=== PATIENT | female | born 1965 | race Caucasian/White ===

== ENCOUNTER 2024-09-25 05:40 | Day surgery (SDC) | payer MEDICARE, SELFPAY ==
--- NOTE | 2024-09-24 06:40 | EKG_ITS ---
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
[2024-09-24 08:49] VITALS: BMI 35.6
[2024-09-24 09:44] LABS: Basophils # (Auto) 0.1 Thou/mm3 (0.0-0.2); Basophils % (Auto) 1 % (0-2.5); Eosinophils # (Auto) 0.2 Thou/mm3 (0.0-0.5); Eosinophils % (Auto) 2 % (0-10); Hematocrit 44.8 % (36.0-46.0); Hemoglobin 15.4 g/dL (12.0-16.0); Immature Granulocytes % (Auto) 0 % (0-0); Immature Granulocytes Auto 0.03 Thou/mm3 (0.00-0.00); Lymphocytes # (Auto) 2.1 Thou/mm3 (1.0-4.8); Lymphocytes % (Auto) 23 % (10-50); Mean Corpuscular HGB Conc 34.4 g/dl (31.0-37.0); Mean Corpuscular Hemoglobin 31.7 pg (25.0-35.0); Mean Corpuscular Volume 92 fL (80-100); Monocytes # (Auto) 0.7 Thou/mm3 (0.0-0.8); Monocytes % (Auto) 8 % (0-12); Neutrophils # (Auto) 6.1 Thou/mm3 (1.8-7.7); Neutrophils % (Auto) 66 % (37-80); Nucleated Red Blood Cell % 0 /100 WBC (0); Platelet Count 232 Thou/mm3 (140-440); RDW Standard Deviation 43.6 fL (36.4-46.3); Red Blood Count 4.86 Miln/mm3 (4.00-5.20); White Blood Count 9.2 Thou/mm3 (3.6-11.0)
[2024-09-24 10:09] LABS: Alanine Aminotransferase 14 U/L (10-49); Albumin, Serum 4.7 gm/dL (3.5-5.0); Alkaline Phosphatase 85 U/L (46-116); Anion Gap 9 (7-16); Aspartate Amino Transferase 12 U/L (0-34); BUN/Creatinine Ratio 8 Ratio (12-20); Bilirubin,Total 0.3 mg/dL (0.3-1.2); Blood Urea Nitrogen 8 mg/dL (9-23); Calcium 9.2 mg/dL (8.3-10.6); Calcium (Corrected) 9.2 mg/dL (8.5-10.1); Chloride 106 mMol/L (98-107); Estimated Creatinine Clearance 65.8 mL/min (>60); Globulin 2.3 gm/dL (2.3-3.5); Glucose 225 mg/dL (74-106); Osmolality,Calculated 292 (275-295); Sodium 144 mMol/L (136-145); eGFR > 60 See Note
[2024-09-24 10:43] LABS: Hepatitis A Antibody IgM Non Reactive (Non React); Hepatitis B Core Antibody IgM Non Reactive (Non React); Hepatitis B Surface Antigen Non Reactive (Non React); Hepatitis C Antibody Non Reactive (Non React)
[2024-09-24 11:55] LABS: HIV (1&2) Antibody Rapid Non-Reactive
[2024-09-25] VITALS (8 sets, daily range): BP systolic 117–156; BP diastolic 63–82; PULSE 60–91; RESP 12–18; TEMP 36.3–37.1; O2SAT 96–98; BMI 35.2
--- NOTE | 2024-09-25 07:55 | PD.GYNHP ---
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 DAMICO is a 58 year old female para 4 admitted for polypectomy and hysteroscopy, diagnostic given the fact that she has 4 to 5 cm polyp from her cervix. Patient has been having repeated episodes of postmenopausal bleeding related to the same. Patient has medical history of hypertension, diabetes and is cleared by her primary care including a cardiology clearance. Patient denies any surgeries in the past. Patient denies any family history of cancer. Last Pap smear was in 2023 which resulted in abnormality of ASCUS. Meds Home Medications and Allergies Home Medications ?Medication ?Instructions ?Recorded ?Confirmed ?Type amlodipine 10 mg tablet 10 mg PO DAILY 09/24/24 09/25/24 History ascorbic acid (vitamin C) 1,000 mg 1,000 mg PO QDAY 09/24/24 09/25/24 History tablet,extended release (C Complex) atenolol 100 mg tablet 100 mg PO DAILY 09/24/24 09/25/24 History cholecalciferol (vitamin D3) 25 25 mcg PO QDAY 09/24/24 09/25/24 History mcg (1,000 unit) capsule (Vitamin D3) clonazepam 1 mg tablet 1 mg PO DAILY PRN anxiety 09/24/24 09/25/24 History hydralazine 50 mg tablet 50 mg PO BID 09/24/24 09/25/24 History lisinopril 40 mg tablet 40 mg PO BID 09/24/24 09/25/24 History metformin 750 mg tablet,extended 1,500 mg PO DAILY 09/24/24 09/25/24 History release 24 hr pantoprazole 40 mg tablet,delayed 40 mg PO QAM 09/24/24 09/25/24 History release (Protonix) albuterol sulfate 90 mcg/actuation 2 puff inhalation Q4H PRN 09/25/24 09/25/24 History aerosol inhaler shortness of breath or wheezing fluticasone propionate 115 2 puff inhalation Q12H 09/25/24 09/25/24 History mcg-salmeterol 21 mcg/actuation HFA inhaler (Advair HFA) Allergies Allergy/AdvReac Type Severity Reaction Status Date / Time No Known Allergies Allergy Verified 09/25/24 06:17 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 Vital Signs Temp Pulse Resp BP Pulse Ox 97.3 F 60 18 129/77 96 09/25/24 06:20 09/25/24 06:20 09/25/24 06:20 09/25/24 06:20 09/25/24 06:20 Constitutional Constitutional: no acute distress Routine HEENT Exam Head: Present normocephalic and atraumatic Eye: Present EOMI and PERRL ENT: Present mucous membranes moist Routine Neck Exam Neck: Present supple and trachea midline Routine Respiratory Exam Respiratory: Present chest non-tender, lungs clear, normal breath sounds and no resp distress Routine Cardiovascular Exam Cardiovascular: Present RRR Routine Abdominal Exam Abdominal: Present soft and normoactive bowel sounds Routine Extremities Exam Extremities: Present full ROM Routine Skin Exam Skin: Present intact and dry Routine Neurological Exam Neurological: Present alert, oriented X3 and CN II-XII intact Routine Psychiatric Exam Psychiatric: Present normal affect and normal thought process INSTRUMENT OPERATOR - Results Labs 09/24/24 09:08 09/24/24 09:08 Labs: Short CBC 09/24/24 Range/Units 09:08 WBC 9.2 (3.6-11.0) Thou/mm3 Hgb 15.4 (12.0-16.0) g/dL Hct 44.8 (36.0-46.0) % Plt Count 232 (140-440) Thou/mm3 BMP 09/24/24 09:08 Sodium 144 Potassium 5.0 Chloride 106 Carbon Dioxide 29.0 BUN 8 L Creatinine 1.0 Glucose 225 H Calcium 9.2 Liver Function 09/24/24 Range/Units 09:08 Total Bilirubin 0.3 (0.3-1.2) mg/dL AST 12 (0-34) U/L ALT 14 (10-49) U/L Alkaline Phosphatase 85 (46-116) U/L Albumin 4.7 (3.5-5.0) gm/dL Impressions Impression: 58-year-old para 4 admitted for diagnostic hysteroscopy polypectomy Postmenopausal bleeding History of cervical Pap smear abnormality of ASCUS in 2023, HPV negative Cardiology clearance obtained Assessment and Plan Additional Assessment & Plan Additional Plan: Diagnostic hysteroscopy, polypectomy Antibiotic prophylaxis not required DVT prophylaxis Quality Measures Quality Measures VTE prophylaxis
--- NOTE | 2024-09-25 08:56 | SUR.PHASEI ---
0862 Patient arrived recovery sitting up in [facility], drowsy and talking with staff, breathing unlabored, vital signs stable, denies pain and nausea, dressing intact to vaginal area; peripad, no bleeding noted, report received from Tom HARDING/Speedy STERN and Jordyn REEDER/Lio REEDER
--- NOTE | 2024-09-25 09:57 | SUR.PHASEII ---
0957 Patient meets discharge criteria from recovery, awake and alert, breathing unlabored, vital signs stable, denies pain and nausea, dressing intact; no bleeding noted, assisted with dressing into her clothing by her , discharge instructions given to patient and patient , signed discharge instructions. Patient given all her belongings prior to discharge, transported via wheelchair and left in a private vehicle.
--- NOTE | 2024-09-25 12:05 | ESOP_ITS ---
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 Indication: Postmenopausal bleeding Cervical polyp Pre-Op diagnosis: Same Post-Op diagnosis: Same Anesthesia type: General Procedure description: The patient was seen prior to surgery. The potential benefits and risks of the procedure, the likelihood of success, and the problems related to recuperation have been discussed with patient who agrees to proceed. The possible results of nontreatment and significant alternatives to the proposed procedure have also been explained, along with the risks and benefits of the alternatives. Risks and benefits of chosen anesthetic/sedation and possible use of blood/blood products (if appropriate) were discussed.The patient was identified as Nahed Sanchez and the procedure verified. A time out was held reviewing the patient identifiers, procedure planned and allergies. At this point the procedure was begun. The patient was positioned and prepped in routine fashion in the dorsal lithotomy position using yellowfin stirups. On examination under anesthesia,the uterus was retroverted to a normal size. Bladder was drained by catheter. A weighted [facility] A brennen was used to expose the anterior lip of the cervix which was then grasped by a single tooth tenaculum.there was a large polyp of 5 to 6 cm X protruding from the external os on palpation the base was in the cervical canal using an Endoloop suture of 0 Vicryl the stitch was tightened around the base and using a curved Morrell the polyp was excised and sent for pathology the cervix was then very easily dilated to a size 6 Hegar dilator. The hysteroscope was then placed under direct visualization. Warm lactated Ringer's was used as a distention medium. The patient's uterus was found to have normal endometrial cavity, fractional D&C done and endometrial curettings sent for pathology. Pictures were taken. . The uterus appeared clear of any remaining excess tissue and the myosure camera and device were withdrawn from the cavity. There was minimal bleeding noted and tenaculum was removed. Hemostasis was acheived with a ringed forcep on anterior cervix. Estimated blood loss (ml): 5 Surgical staff Operation Date: 09/25/24 07:30 <No data on this case meets the specified criteria> Diagnosis Problem List Completed Was Problem List Reviewed/Reconciled?: Yes
== END 2024-09-25 09:57 | disposition home or self-care (01) ==
PROVIDERS: Anesthesiology; PCP Family Medicine; Referring Provider Student in an Organized Health Care Education/Training Program; Visit Provider Student in an Organized Health Care Education/Training Program
PROC: 0UJD8ZZ Inspection of Uterus and Cervix, Via Natural or Artificial Opening Endoscopic (ICD-10-PCS; CPT 58555; principal; 2024-09-25 07:30)
DX: N84.1 Polyp of cervix uteri (principal); Z79.51 Long term (current) use of inhaled steroids; I10 Essential (primary) hypertension; E11.9 Type 2 diabetes mellitus without complications; Z01.810 Encounter for preprocedural cardiovascular examination
CPT/HCPCS: 58558; 36415; 80053; 80074; 85025; 86703; 86850; 86900; 86901; 93005; A4217; A4649; J1100; J2250; J2371; J2405; J2704; J2765; J3010; J3490; A9270; J0665; J1596